=== PATIENT | female | born 1960 | race Caucasian/White ===

== ENCOUNTER 2018-07-30 14:07 | Emergency (ER) | END 2018-07-30 15:42 | disposition home or self-care (01) ==

== ENCOUNTER 2019-02-17 09:31 | Emergency (ER) | payer OTHER ==
[~2019-02-17] VITALS: Wt 70.0 kg
[~2019-02-17 09:31] MED LIST: ASPI-831 PO; ATOR10TA65 PO; CLIN300C10 PO; HYDR-3498 PO; IBUP-1542 PO; LOSA1TAB22 PO; OMEP20CA16 PO
[2019-02-17 09:34] VITALS: BP 156/81; PULSE 78; RESP 20
[2019-02-17] MEDS ORDERED: BENZONATATE 100 MG CAP PO ONE (10:30)
[2019-02-17] MEDS ORDERED: BENZ-6 PO (10:58)
[2019-02-17] MEDS ORDERED: AMOX1TAB10 PO (10:58)
--- NOTE | 2019-02-17 11:17 | ERD ---
ER Documentation Chief Complaint Chief Complaint cough and congestion with intermittent fevers for the past few days. HPI This is a 58-year-old female with a history of hypertension diabetes mellitus who presents ED with complaints of runny nose and nasal congestion for the past 20 days. Patient admits to sinus pain and pressure that started 4 days ago. Admits to subjective fevers but has not taken temperature. Also admits to cough with sputum production. Denies chest pain, shortness breath, trouble breathing, sore throat, ear pain, abdominal pain, nausea, vomiting, diarrhea, constipation or other symptoms. No known drug allergies. ROS All systems reviewed and are negative except as per history of present illness. Medications Home Meds Active Scripts Benzonatate* (Tessalon Perle*) 100 Mg Capsule, 100 MG PO Q8H PRN for COUGH, #18 CAP Prov:PATEL BERNSTEIN PA-C 02/17/19 Amoxicillin/Potassium Clav (Amox-Clav 875-125 mg Tablet) 875-125 mg Tab, 1 TAB PO BID for 10 Days, #20 TAB Prov:PATEL BERNSTEIN PA-C 02/17/19 Ibuprofen* (Motrin*) 600 Mg Tab, 600 MG PO Q6H PRN for PAIN AND OR ELEVATED TEMP, #30 TAB Prov:ABHINAV VELEZ PA-C 07/30/18 Clindamycin Hcl* (Clindamycin Hcl*) 300 Mg Capsule, 300 MG PO TID for 10 Days, CAP Prov:ROSALBA,ROSMERY DO 12/29/15 Hydrocodone Bit-Acetaminophen* ([place]*) 5-325 Mg Tab, 1 TAB PO Q6 PRN for PAIN, #7 TAB Prov:ROSALBA,ROSMERY DO 12/29/15 Hydrocodone Bit-Acetaminophen* ([place]*) 5-325 Mg Tab, 1 TAB PO Q4H PRN for PAIN, #30 TAB Prov:YARI GOODRICH 11/05/15 Reported Medications Aspirin (Aspirin) 81 Mg Chew, 81 MG PO DAILY, TAB.CHEW 03/16/15 Atorvastatin (Atorvastatin) 10 Mg Tablet, 10 MG PO, TAB 03/16/15 Losartan-Hydrochlorothiazide (Losartan-HCTZ) 50-12.5 Mg Tab, 1 TAB PO DAILY, TAB 03/16/15 Omeprazole* (Omeprazole*) 20 Mg Capsule.dr, 20 MG PO DAILY, CAP 03/16/15 Allergies Allergies: Coded Allergies: No Known Allergy (Unverified , 10/30/15) PMhx/Soc History of Surgery: Yes (Angiogram 2013) Anesthesia Reaction: No Hx Neurological Disorder: No Hx Respiratory Disorders: No Hx Cardiac Disorders: Yes (HTN, High Cholesterol) Hx Psychiatric Problems: No Hx Miscellaneous Medical Probl: No (dm) Hx Alcohol Use: No Hx Substance Use: No Hx Tobacco Use: No Smoking Status: Never smoker FmHx Family History: No diabetes Physical Exam Vitals Vital Signs Date Temp Pulse Resp B/P (MAP) Pulse Ox O2 O2 Flow FiO2 Time Delivery Rate 02/17/19 98.0 78 20 156/81 98 09:34 (106) Physical Exam Physical Exam Vitals signs: Reviewed by me. General: Well developed, well nourished, in no acute distress. Patient is awake and alert. Head: Normocephalic, atraumatic. Eyes: Normal conjunctiva, Pupils PERRLA, EOM intact grossly ENT: Pharynx is clear, Moist mucous membranes, external ears, nose and mouth normal, there is tenderness to percussion of the bilateral maxillary sinuses, left greater than right, no peritonsillar adenopathy, exudate or erythema, no kissing tonsils, no uvula deviation Neck: Supple, no masses, lymphadenopathy or JVD Respiratory: Clear to auscultation bilaterally with no wheezing, rhonchi, rales, no distress Cardiovascular: RRR, no murmurs, rubs, or gallops Neurologic: Alert and oriented, moving all extremities, normal speech, no focal weakness, no cerebellar signs. Normal mentation Skin: warm and dry, No rash Psych: Normal mood , Normal nasal mucosa with clear rhinorrhea, Results 24 hrs Current Medications Medications Dose Sig/Mica Start Time Status Last (Trade) Ordered Route PRN Stop Time Admin Dose Reason Admin Benzonatate 100 mg ONCE ONCE 02/17/19 DC 02/17/19 (Tessalon) PO 10:30 10:51 02/17/19 10:31 Procedures/MDM EKG, MONITORS, & DIAGNOSTIC IMAGING: [place] [address] Radiology Main Line: [phone] DIAGNOSTIC IMAGING REPORT Patient: TRACEY DUMONT : 1960 Age: 58 Sex: F [id number] [id number] DOS: 02/17/19 1018 Ordering MD: PATEL BERNSTEIN PA-C Location: [facility] Room/Bed: PROCEDURE: XR Chest. CLINICAL INDICATION: Cough TECHNIQUE: Frontal chest x-ray was obtained. COMPARISON: Chest x-ray October 30, 2015 FINDINGS: The heart is not enlarged. Mediastinum is not widened. No hilar masses seen. Lungs are clear of any infiltrates. There are linear markings present at the lung bases suggestive of fibrosis or plate-like atelectasis. There is no effusion or pneumothorax. The osseous structures appear normal. IMPRESSION: No pneumonia or failure. Bibasilar scarring versus plate-like atelectasis. .Didier Miller MD, MD Date Time Electronically viewed and signed by .Didier Miller MD, MD on 02/17/2019 10:49 .A/ CC: PATEL BERNSTEIN PA-C [phone] ER COURSE: The patient was given Tessalon Perles The medication was well tolerated and the patient reports improvement in symptoms. The patient was stable throughout ED course. I kept the patient and/or family informed of laboratory and diagnostic imaging results throughout the emergency room course. The patient was promptly evaluated and a treatment plan was devised based on H&P and other data. This plan was discussed with the patient who agreed and had no further questions or concerns prior to discharge. MEDICAL DECISION MAKIN-year-old female presents ED with complaints of URI-like symptoms for the past 20 days. Patient developed sinus pain and pressure 4 days ago. Given history and physical this is likely sinusitis. No evidence of ENT emergency including the not limited to retro pharyngeal abscess, peritonsillar abscess, Ludwigs, epiglottitis, mastoiditis. Chest x-ray is unremarkable. No evidence of pneumon ia, pleural effusion, pneumothorax, tension pneumothorax, p pulmonary embolism, . Patient's vitals are stable she can be managed outpatient with close follow- up. Advised patient follow up with primary care in 48 hours. Return to ED with any worsening symptoms DISPOSITION PLAN: We discussed follow up with the patient's primary care doctor within 24 to 48 hours. Patient counseled regarding my diagnostic impression and care plan. Prior to discharge all questions answered. Pt agrees with treatment plan and understands strict return precautions. Precautionary instructions provided including instructions to return to the ER if not improving or for any worsening or changing symptoms or concerns. SPECIALIST FOLLOW UP RECOMMENDED: None Patient has been advised to follow up with primary care in 1-2 days. Disclaimer: Inadvertent spelling and grammatical errors are likely due to EHR/dictation software use and do not reflect on the overall quality of patient care. Also, please note that the electronic time recorded on this note does not necessarily reflect the actual time of the patient encounter. Blood Pressure Assessment: Patient's blood pressure was elevated (>120/80) but appears stable without evidence of hypertension emergency or urgency. The patient was counseled about the risks of hypertension and urged to pursue outpatient monitoring and therapy within a week with their primary care physician. Departure Diagnosis: Primary Impression: Sinusitis Sinusitis location: unspecified location Chronicity: acute Recurrence: non-recurrent Qualified Codes: J01.90 - Acute sinusitis, unspecified Additional Impression: Cough Condition: Stable Patient Instructions: Preventing Common Respiratory Infections, Sinusitis, Abx Tx Referrals: [facility] Usted se guardado hecho un examen mdico de control que le indica que no est en yvon condicin que requiera tratamiento urgente en el Departamento de Emergencia. Un estudio ms profundo y el tratamiento de monroy condicin pueden esperar sin ningn riesgo hasta que usted sea atendida/o en el consultorio de monroy mdico o yvon clnica. Es responsabilidad suya arreglar yvon duke para el seguimiento del andry. MANEJO DE CONDICIONES NO URGENTES EN EL FUTURO 1) Si usted tiene un mdico de atencin primaria: Usted debera llamar a monroy mdico de atencin primaria antes de venir al departamento de emergencia. Despus de las horas de consultorio, monroy doctor o monroy asociado/a est disponible por telfono. El mdico o enfermero de steve en el servicio telefnico puede asesorarle por ashleigh medio para atender el problema, o andry contrario se puede programar yvon duke. 2) Si usted no tiene un mdico de atencin primaria: Llame al mdico o clnica de referencia que aparece abajo norberto las horas de consultorio para hacer yvon duke para que le vean. CLINICAS: [facility] [phone] [facility] [phone] [facility] [phone] [facility] [phone] [place] [id number] [phone] [facility] [phone] Additional Instructions: Patient advised to return to the ED immediately for new or worsening symptoms. Patient advised to follow up with primary care provider in the next 24-48 hours. Patient verbalized understanding and agrees with treatment plan and course of action. If patient has no primary care they may follow up with one of the community clinics listed on the following page or one of the options listed below [facility] + [facility] [address] [place] [id number] or [facility] [address] [place] [address] or [facility] [address] [place] [address] PATEL BERNSTEIN PA-C Feb 17, 2019 11:17
== END 2019-02-17 11:42 | disposition home or self-care (01) ==
LOC: FTE 09:31
DX: J01.90 Acute sinusitis, unspecified (principal); I10 Essential (primary) hypertension; E11.9 Type 2 diabetes mellitus without complications; Z79.82 Long term (current) use of aspirin
CPT/HCPCS: 71045; Z7502; Z7610

== ENCOUNTER 2019-03-29 06:59 | Day surgery (SDC) | payer OTHER ==
[~2019-03-29] VITALS: Ht 157.5 cm; Wt 71.3 kg
[~2019-03-29 06:59] MED LIST changes: +AMOX1TAB10 PO; +BENZ-6 PO
[2019-03-29] MEDS ORDERED: ASPIRIN (08:21)
[2019-03-29] MEDS ORDERED: METFORMIN (08:21)
[2019-03-29] MEDS ORDERED: [UNRECOGNIZED DRUG - OTHER] (08:21)
[2019-03-29] MEDS ORDERED: METOPROLOL (08:21)
[2019-03-29] MEDS ORDERED: ATORVASTATIN (08:21)
[2019-03-29 08:22] VITALS: Ht 157.5 cm; Wt 71.3 kg
[2019-03-29 08:48] VITALS: BP 137/71; PULSE 69; RESP 20
[2019-03-29] MEDS ORDERED: FENTAnyl 50 MCG/ML VIAL ONE (09:47)
[2019-03-29] MEDS ORDERED: MIDAZOLAM 1 MG/ML 2 ML INJ ONE ×2 (09:48)
[2019-03-29 10:10] VITALS: BP 111/65; RESP 20
== END 2019-03-29 11:04 | disposition home or self-care (01) ==
LOC: GIL 06:59
PROVIDERS: ATTEND Internal Medicine Gastroenterology
DX: K64.8 Other hemorrhoids (principal); K57.30 Diverticulosis of large intestine without perforation or abscess without bleeding; R10.10 Upper abdominal pain, unspecified; I10 Essential (primary) hypertension; E11.9 Type 2 diabetes mellitus without complications
CPT/HCPCS: 43239; 45378; 82962; 88305; 88312; J2250; J3010; Z7610

== ENCOUNTER 2019-05-15 06:57 | Observation (INO) | payer OTHER ==
[~2019-05-15] VITALS: Ht 162.6 cm; Wt 69.1 kg
[~2019-05-15 06:57] MED LIST changes: +ASPIRIN; +ATORVASTATIN; +METFORMIN; +METOPROLOL; +[UNRECOGNIZED DRUG - OTHER]
[2019-05-15 06:59] VITALS: Ht 162.6 cm; Wt 69.1 kg
[2019-05-15] MEDS ORDERED: ASPIRIN 325 MG TAB PO STA (07:19)
[2019-05-15] MEDS ORDERED: MAGNESIUM SULFATE 2 GM/50 ML 50 ML IVPB STA (07:19)
[2019-05-15] MEDS ORDERED: SOD CHLORIDE 0.9% 1,000 ML IV STA (07:19)
--- NOTE | 2019-05-15 07:35 | ERD ---
ER Documentation Chief Complaint Chief Complaint shortness of breath and chest pressure since 3 am today; dizziness now HPI During the patient's encounter translation services were utilized Language: Maldivian Source: In person 59-year-old female with remote history of non-STEMI without stents who presents to the emergency room complaining of chest pressure and new onset A. fib with RVR. Patient states that she did not feel well yesterday. This morning she woke up with pressure over the anterior aspect of her chest. She felt her heart racing. Upon arrival she is in A. fib with RVR with low blood pressure. She denies any fevers, chills, pleuritic pain, no calf swelling. No recent travel sick contacts immobilization or surgical intervention. Patient states that the chest pain is since gone. She did not describe any pleuritic discomfort or significant shortness of breath. Symptoms are moderate ROS All systems reviewed and are negative except as per history of present illness. Medications Home Meds Active Scripts Benzonatate* (Tessalon Perle*) 100 Mg Capsule, 100 MG PO Q8H PRN for COUGH, #18 CAP Prov:PATEL BERNSTEIN PA-C 02/17/19 Amoxicillin/Potassium Clav (Amox-Clav 875-125 mg Tablet) 875-125 mg Tab, 1 TAB PO BID for 10 Days, #20 TAB Prov:PATEL BERNSTEIN PA-C 02/17/19 Ibuprofen* (Motrin*) 600 Mg Tab, 600 MG PO Q6H PRN for PAIN AND OR ELEVATED TEMP, #30 TAB Prov:ABHINAV VELEZ PA-C 07/30/18 Clindamycin Hcl* (Clindamycin Hcl*) 300 Mg Capsule, 300 MG PO TID for 10 Days, CAP Prov:ROSMERY NAVARRETE DO 12/29/15 Hydrocodone Bit-Acetaminophen* (Singer*) 5-325 Mg Tab, 1 TAB PO Q6 PRN for PAIN, #7 TAB Prov:ROSALBAKASHROSMERY DO 12/29/15 Hydrocodone Bit-Acetaminophen* (Singer*) 5-325 Mg Tab, 1 TAB PO Q4H PRN for PAIN, #30 TAB Prov:YARI GOODRICH 11/05/15 Reported Medications [Metoprolol] No Conflict Check 03/29/19 [Pantroprazole] No Conflict Check 03/29/19 [Atorvastatin] No Conflict Check 03/29/19 [Aspirin] No Conflict Check 03/29/19 [Metformin] No Conflict Check 03/29/19 Aspirin (Aspirin) 81 Mg Chew, 81 MG PO DAILY, TAB.CHEW 03/16/15 Atorvastatin (Atorvastatin) 10 Mg Tablet, 10 MG PO, TAB 03/16/15 Losartan-Hydrochlorothiazide (Losartan-HCTZ) 50-12.5 Mg Tab, 1 TAB PO DAILY, TAB 03/16/15 Omeprazole* (Omeprazole*) 20 Mg Capsule.dr, 20 MG PO DAILY, CAP 03/16/15 Allergies Allergies: Coded Allergies: No Known Allergy (Unverified , 10/30/15) PMhx/Soc History of Surgery: No Anesthesia Reaction: No Hx Neurological Disorder: No Hx Respiratory Disorders: No Hx Cardiac Disorders: Yes (HTN) Hx Psychiatric Problems: No Hx Miscellaneous Medical Probl: No Hx Alcohol Use: No Hx Substance Use: No Hx Tobacco Use: No FmHx Family History: No diabetes, No coronary disease Physical Exam Vitals Vital Signs Date Temp Pulse Resp B/P (MAP) Pulse Ox O2 O2 Flow FiO2 Time Delivery Rate 05/15/19 97.8 137 18 85/67 (73) 100 06:59 Physical Exam General: Well developed, well nourished, no acute distress Head: Normocephalic, atraumatic. Eyes: Pupils equally reactive, EOM intact ENT: Moist mucous membranes Neck: Supple, no lymphadenopathy Respiratory: Lungs clear bilaterally, no distress Cardiovascular: Irregularly irregular, then regular rate and rhythm, no murmurs, rubs, or gallops Abdominal: Soft, non-tender, non-distended, no peritoneal signs : Deferred MSK: No edema, no unilateral swelling, 5/5 strength Neurologic: Alert and oriented, moving all extremities, normal speech, no focal weakness, no cerebellar signs Skin: No rash Psych: Normal mood Result Diagram: 05/15/19 0735 05/15/19 0735 Results 24 hrs Laboratory Tests Test 05/15/19 07:35 White Blood Count 5.2 10^3/ul Red Blood Count 4.59 10^6/ul Hemoglobin 15.2 g/dl Hematocrit 43.8 % Mean Corpuscular Volume 95.4 fl Mean Corpuscular Hemoglobin 33.1 pg Mean Corpuscular Hemoglobin Concent 34.7 g/dl Red Cell Distribution Width 12.6 % Platelet Count 199 10^3/UL Mean Platelet Volume 8.5 fl Immature Granulocytes % 0.400 % Neutrophils % 54.3 % Lymphocytes % 36.5 % Monocytes % 7.6 % Eosinophils % 0.6 % Basophils % 0.6 % Nucleated Red Blood Cells % 0.0 /100WBC Immature Granulocytes # 0.020 10^3/ul Neutrophils # 2.8 10^3/ul Lymphocytes # 1.9 10^3/ul Monocytes # 0.4 10^3/ul Eosinophils # 0.0 10^3/ul Basophils # 0.0 10^3/ul Nucleated Red Blood Cells # 0.0 10^3/ul Prothrombin Time 12.1 Sec Prothrombin Time Ratio 0.9 INR International Normalized Ratio 0.89 Activated Partial Thromboplast Time 28.6 Sec Sodium Level 140 mmol/L Potassium Level 4.4 mmol/L Chloride Level 104 mmol/L Carbon Dioxide Level 24 mmol/L Anion Gap 12 Blood Urea Nitrogen 17 mg/dl Creatinine 0.68 mg/dl Est Glomerular Filtrat Rate mL/min > 60 mL/min Glucose Level 176 mg/dl Calcium Level 9.2 mg/dl Magnesium Level 2.0 mg/dl Troponin I < 0.012 ng/ml B-Type Natriuretic Peptide 519 PG/ML Thyroid Stimulating Hormone (TSH) Pending Free Thyroxine Index 2.41 ug/ml Thyroxine (T4) 6.8 ug/dl Triiodothyronine (T3) Uptake 35.5 % Current Medications Medications Dose Sig/Mica Start Time Status Last (Trade) Ordered Route PRN Stop Time Admin Dose Reason Admin Sodium 1,000 ml @ Q1H STAT 05/15/19 DC 05/15/19 Chloride 1,000 mls/hr IV 07:19 07:57 05/15/19 08:18 Aspirin 325 mg ONCE STAT 05/15/19 DC 05/15/19 (Aspirin) PO 07: 07:57 05/15/19 07:22 Magnesium 50 ml @ ONCE STAT 05/15/19 DC 05/15/19 Sulfate 600 mls/hr IVPB 07:19 07:57 05/15/19 07:23 Procedures/MDM EKG, MONITORS, & DIAGNOSTIC IMAGING: EKG: I reviewed and interpreted a 12-lead EKG. Rhythm: A. fib with RVR ST Changes: No contiguous ST segment elevations T waves: No contiguous T wave inversions Impression: A. fib with RVR Repeat EKG: EKG: I reviewed and interpreted a 12-lead EKG. Rhythm: Normal sinus rhythm ST Changes: No contiguous ST segment elevations T waves: No contiguous T wave inversions Impression: No evidence of acute cardiac ischemia Chest x-ray: I reviewed and interpreted a 1 view of the chest Mediastinum: No enlargement Cardiac silhouette: No cardiomegaly Airspace: Clear lung adams bilaterally without evidence of pneumothorax Bones: No evidence of fracture PROCEDURES: None LAB INTERPRETATION: * Negative troponin MEDICAL DECISION MAKING: The patient's history, physical exam and clinical presentation is concerning for possible cardiogenic etiology and acute coronary syndrome and new onset paroxysmal atrial fibrillation. The patient had spontaneous conversion during my conversation with her. The patient likely has paroxysmal atrial fibrillation that is new diagnosis. No signs or symptoms concerning for pulmonary process such as pulmonary embolism. No evidence of infectious process. Based on the patient's clinical exam and history and risk factors, I have a much lower clinical concern for pulmonary embolism, acute aortic dissection, pneumothorax, pneumonia, cardiac tamponade HEART Score: Greater than 3 MACE Rate: 16.6% Shared Decision Making: We had a conversation regarding risk stratification, MACE rate, and the risks, benefits, alternatives of disposition planning o ptions. Disposition planning: Admission ER COURSE: * Chest pain-free. Aspirin given. Magnesium dose provided. * Laboratory testing reassuring. CONSULTATION: None DISPOSITION PLAN: Telemetry admission for management of chest pain to rule out acute coronary syndrome, serial enzymes, risk stratification and consideration of provocative testing CONSULTATION: Accepting care team and consultations: I discussed the current laboratory data, diagnostic imaging and emergency care provided. Admitting team: Dr. Bustamante Admitting team indication: Insurance directed Departure Diagnosis: Primary Impression: Chest pain Chest pain type: unspecified Qualified Codes: R07.9 - Chest pain, unspecified Additional Impressions: New onset atrial fibrillation Paroxysmal atrial fibrillation with RVR Condition: Stable MUSHTAQ CHIU MD May 15, 2019 07:35
[2019-05-15] MEDS ORDERED: ONDANSETRON 4 MG INJ IV PRN ×2 (09:00→10:00)
[2019-05-15] MEDS ORDERED: ACETAMINOPHEN 325 MG TAB PO PRN (09:00)
[2019-05-15] MEDS ORDERED: ASPI81TA52 PO (09:03)
[2019-05-15] MEDS ORDERED: METF500T3 PO (09:03)
[2019-05-15] MEDS ORDERED: ATOR10TA65 PO (09:03)
[2019-05-15] MEDS ORDERED: LOSA50TA14 PO (09:03)
[2019-05-15] MEDS ORDERED: PANT40TA3 PO (09:04)
[2019-05-15] MEDS ORDERED: NACL 0.9% 3 ML SYG IV SCH (10:00)
--- NOTE | 2019-05-15 10:17 | HP ---
Date/Time of Note Date/Time of Note DATE: 05/15/19 TIME: 10:04 Assessment/Plan VTE Prophylaxis SCD applied (from Nsg): Yes Pharmacological prophylaxis: NA/contraindicated Pharm contraindication: low risk/ambulating Lines/Catheters IV Catheter Type (from Nrsg): Saline Lock Assessment/Plan Assessment/Plan 59 yo woman history of NSTEMI and NIDDM presents in symptomatic paroxysmal A fib. #Atrial fibrillation, paroxysmal. - Denies any palpitations or chest pain since 2013, so this is probably new onset. - Currently symptoms resolved. - Will consult cardiology to see if she needs to be D/Jack on something for rate control. - Will benefit from anticoagulation. Likely eliquis. - TTE - Admit to tele - Dr Morse consulted. #NIDDM - Continue home metformin - Check HgbA1C #HTN - Cont JOHANNA-HCTZ #Dyslipidemia - Cont statin DVT: Likely start eliqius before discharge GI: H2 alethea Result Diagram: 05/15/19 0735 05/15/19 0735 HPI/ROS Admit Date/Time Admit Date/Time 15 May 2019 Hx of Present Illness Ms. Syed is a Irish-speaking 59 yo woman with history of NSTEMI, NIDDM who presents with chest martinez and palpitations. She was in her usual state of health until this morning at 3 am when she was woken from sleep with pressure-like chest discomfort. It was worse with standing, better with lying down. She didn't take anything for the discomfort and waited for symptoms to resolve. Around 6 am she developed dyspnea at rest and dizziness, so she presented to the ED. Otherwise she reports compliance with all medications listed. 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 Last time she had this chest pain was after an NSTEMI in 2013 which was treated medically with no cardiac cath. On arrival to the ED she was in A fib tachycardic to 137; hypotensive to 85/67, afebrile, satting 100% on room air. Labs unremarkable including a negative troponin. She got aspirin and a NS bolus and spontaneously converted back to normal sinus. ROS She denies fever, chills, weight loss, night sweats, headache, vision changes, nausea, vomiting, sore throat, dysphagia, cough, abdominal pain, diarrhea, constipation, leg swelling. She does report occasional dysuria which comes and goes. PMH/Family/Social Past Medical History NSTEMI in 2014 treated medically, no cath. Non-insulin dependent diabetes Hypertension Medications Current Medications Ondansetron HCl (Zofran Inj) 4 mg ER BRIDGE PRN IV NAUSEA/VOMITING; Start at 09:00; Stop 05/16/19 at 08:59 Acetaminophen (Tylenol Tab) 650 mg ER BRIDGE PRN PO .MILD PAIN 1-3 OR TEMP; Start 05/15/19 at 09:00; Stop 05/16/19 at 08:59 IV Flush (NS 3 ml) 3 ml PER PROTOCOL IV ; Start 05/15/19 at 10:00; Status UNV Ondansetron HCl (Zofran Inj) 4 mg Q6H PRN IV NAUSEA/VOMITING; Start 05/15/19 at 10:00; Status UNV Famotidine (Pepcid) 20 mg Q12 PO ; Start 05/15/19 at 21:00; Status UNV Coded Allergies: No Known Allergy (Unverified , 05/15/19) Past Surgical History Tuboligation at age 29 Past Surgical Hx: other Family History Significant Family History: no pertinent family hx Social History Alcohol Use: none Smoking Status: Never smoker Drug Use: none Exam/Review of Systems Vital Signs Vitals Vital Signs Date Temp Pulse Resp B/P (MAP) Pulse Ox O2 O2 Flow FiO2 Time Delivery Rate 05/15/19 97.8 137 18 85/67 (73) 100 06:59 Exam Exam Gen: Well appearing woman supine in bed, no distress. Eyes: PERRL, no icterus HEENT: Moist mucous membranes, clear oropharynx Neck: No lymphadenopathy, supple, no JVD Card: Regular rate and rhythm, no murmurs Pulm: Clear to auscultation bilaterally, no wheezes. Abd: Soft, nontender throughout, nondistended. Normoactive bowel sounds. Ext: 1+ nonpitting bilateral LE edema, peripheral pulses strong. Skin: bilateral LE varicose veins. LUCERO HOPE MD May 15, 2019 10:14
[2019-05-15] MEDS ORDERED: GLUCAGON 1 MG INJ IM PRN (10:30)
[2019-05-15] MEDS ORDERED: DEXTROSE 50% 50 ML SYRINGE IV PRN ×2 (10:30)
[2019-05-15] MEDS ORDERED: GLUCOSE GEL 15 GRAM TUBE BUCCAL PRN (10:30)
[2019-05-15] MEDS ORDERED: GLUCOSE GEL 15 GRAM TUBE PO PRN ×2 (10:30)
[2019-05-15] MEDS: ACCU-CHEK XX SCH ×2 (12:30→21:00)
[2019-05-15] MEDS ORDERED: METOPROLOL 5 MG INJ IV PRN (15:30)
--- NOTE | 2019-05-15 16:23 | RADRPT ---
Echocardiogram Report Patient Name: TRACEY DUMONTPatient ID: [id number] : 1960 (59y 2m)Study Date: 05/15/2019 10:31:37 AM Gender: FAccession #: [id number] Tech: Seng Landry AVA Location: [facility] Ref.Physician: LUCERO HOPE Height(Cm): BSA: Weight(Kg): Quality: AdequateOrder Physician: LUCERO HOPE Account #: Procedures: Echocardiographic Report: Transthoracic echocardiogram with complete 2D, M-Mode, and doppler examination. Indications: New Atrial Fibrillation. Measurements: 2D/M Mode Doppler Measurement Value Normal Range Measurement Value Normal Range LVIDd 2D 3.8 [ 3.8 - 5.2 ] cm AV Peak Oscar 1.1 [ 100.0 - 170.0 ] cm/sec LVIDs 2D 1.5 [ 2.2 - 3.5 ] cm AV Peak PG 5.0 [ 2.0 - 9.0 ] mmHg LVPWd 2D 1.1 [ 0.6 - 0.9 ] cm LVOT Peak Oscar 0.8 [ 70.0 - 110.0 ] cm/sec IVSd 2D 1.1 [ 0.6 - 0.9 ] cm LVOT Peak PG 3.0 [ 2.0 - 6.0 ] mmHg IVS/LVPW 2D 1.0 ratio MV E Peak Oscar 0.5 [ 60.0 - 130.0 ] cm/sec AoR Diam 2D 3.2 [ 2.3 - 3.1 ] cm MV A Peak Oscar 0.7 [ 100.0 - 120.0 ] cm/sec LA/Ao 2D 1 ratio MV E/A 0.8 [ 0.8 - 1.5 ] ratio LA Dimen 2D 3.3 [ 2.7 - 3.8 ] cm MV Decel Time 113 [ 104 - 258 ] msec Lat E` Oscar 0.1 [ 10.0 - 15.0 ] cm/sec Med E` Oscar 0.1 cm/sec MV E/A 0.8 [ 0.8 - 1.5 ] ratio TR Peak Oscar 2.7 [ 100.0 - 280.0 ] cm/sec TR Peak PG 29.0 mmHg RVSP 37.0 [ 10.0 - 36.0 ] mmHg RA Pressure 8.0 mmHg Findings: Left Ventricle: Normal left ventricular systolic function. Normal left ventricular cavity size. Mild concentric left ventricular hypertrophy. Ejection fraction is visually estimated at 60-65 %. Tissue Doppler/Mitral Doppler indices are consistent with impaired relaxation (Stage I diastolic dysfunction). Right Ventricle: Normal right ventricular systolic function. Mild enlargement of right ventricle. Left Atrium: The left atrium is normal in size. Right Atrium: There is mild enlargement of right atrium. Mitral Valve: Normal appearance and function of the mitral valve with trace physiologic regurgitation. Aortic Valve: Normal appearance of the aortic valve. No significant aortic stenosis or insufficiency. Tricuspid Valve: Normal appearance of the tricuspid valve. The estimated Peak RVSP is 37 mmHg. There is mild tricuspid regurgitation. Pulmonic Valve: Normal pulmonic valve appearance. Pericardium: Normal pericardium with no significant pericardial effusion. Aorta: Normal aortic root. IVC: Normal size and normal respiratory collapse consistent with normal right atrial pressure. Dilated IVC with respiratory collapse consistent with elevated right atrial pressure. Conclusions: Normal left ventricular systolic function. Normal left ventricular cavity size. Mild concentric left ventricular hypertrophy. Ejection fraction is visually estimated at 60-65 %. Tissue Doppler/Mitral Doppler indices are consistent with impaired relaxation (Stage I diastolic dysfunction). Normal right ventricular systolic function. Mild enlargement of right ventricle. Normal appearance and function of the mitral valve with trace physiologic regurgitation. Normal appearance of the tricuspid valve. The estimated Peak RVSP is 37 mmHg. There is mild tricuspid regurgitation. Electronically Signed By: Lucero Morse 2019-05-15 16:23:02 PDT
[2019-05-15 20:30] VITALS: BP 123/68; PULSE 66; RESP 18
[2019-05-15 20:40] VITALS: PULSE 70
[2019-05-15] MEDS ORDERED: ATORVASTATIN 10 MG TAB PO SCH (21:00)
[2019-05-15] MEDS: FAMOTIDINE 20 MG TAB PO SCH (21:15)
[2019-05-15] MEDS: APIXABAN 5 MG TABLET PO SCH (21:15)
[2019-05-15] MEDS: METOPROLOL 25 MG TAB PO SCH (21:16)
[2019-05-16] VITALS (9 sets, daily range): BP systolic 101–121; BP diastolic 55–67; PULSE 61–68; RESP 18–20
--- NOTE | 2019-05-16 07:16 | CONS ---
DATE OF ADMISSION: 05/15/2019 DATE OF CONSULTATION: 05/15/2019 TYPE OF CONSULTATION: Cardiology. REASON FOR CONSULTATION: Chest pain, palpitations. Paroxysmal atrial fibrillation. REQUESTING PHYSICIAN: Lucero Hope MD, from the hospitalist service. HISTORY OF PRESENT ILLNESS: Ms. Syed is a 59-year-old female with a history of prior non-ST myoc ardial infarction in 2013 with subsequent left heart catheterization revealing no significant obstruc tive coronary artery disease, gastritis, hypertension, dyslipidemia, diabetes mellitus who states francia t she woke this morning with complaints of substernal chest pain, describes a pressure-like sensation with associated palpitations which she has not had since 2014 as far as chest pain. The patient den ied any prior history of palpitations similar to this. Upon arrival in the ER, temperature 97.8, blo od pressure 85/67, pulse 137/18, satting 100%. LABORATORY DATA: The patient's labs showed white blood cell count 5.2, hematocrit 50.2, platelet cou nt 199. Sodium 140, potassium 4.4, creatinine 0.6, BUN 17. Troponin negative. BNP of 519. INR 0.9 . The patient underwent a chest x-ray revealing calcified thoracic aortic arch. The patient's electroc ardiogram revealed atrial fibrillation, rate 134 with incomplete right bundle branch block, secondary repolarization abnormalities. The patient in the Emergency Department, was treated with aspirin 325 mg daily, mag sulfate, IV hydration and had what appears to be a spontaneous conversion. I do not s ee any medications given. Sinus rhythm, where she remains at this time with resolution of symptoms. The patient now admitted to floor for further evaluation and treatment. PAST MEDICAL HISTORY: As above in HPI. MEDICATIONS CURRENTLY IN HOSPITAL: 1. Aspirin 81 mg daily. 2. Losartan 50 mg daily. 3. Metformin 500 mg a day. 4. Pepcid 20 q.12. 5. Lipitor 10 mg at bedtime. 6. Zofran p.r.n. 7. Tylenol p.r.n. ALLERGIES: No known drug allergies. SOCIAL HISTORY: No current tobacco, ETOH or illicit drug use. FAMILY HISTORY: No sudden cardiac or early CAD. REVIEW OF SYSTEMS: As above in HPI. CONSTITUTIONAL: No fevers, chills. PULMONARY: No current shortness of breath. CARDIOVASCULAR: Paroxysmal atrial fibrillation with rapid ventricular response, now in sinus rhythm. GASTROINTESTINAL: No vomiting. GENITOURINARY: No hematuria. MUSCULOSKELETAL: Degenerative joint disease. PSYCHIATRIC: The patient has depression. NEUROLOGIC: No documented CVA. ENDOCRINE: Diabetes mellitus. PHYSICAL EXAMINATION: VITAL SIGNS: Temperature 98, blood pressure 120/64, pulse 78, respiratory rate 18, satting 100%. GENERAL: Patient is alert, awake, no acute distress. NECK: JVP approximately 8 to 9 cm of water. CHEST: Fair air movement throughout. HEART: Regular rate and rhythm. Normal S1, S2, I/ systolic murmur, nondisplaced PMI. ABDOMEN: Positive bowel sounds, soft. EXTREMITIES: No edema, 1+ pulses bilateral posterior tibial. LABORATORY DATA: As above in HPI. No further labs for my review at this time. IMAGING STUDIES: As in HPI. No further imaging studies for my review at this time. ECG: As above in HPI. No further electrocardiograms for my review at this time. IMPRESSION: 1. Paroxysmal atrial fibrillation with rapid ventricular response, now converted to sinus rhythm spo ntaneously. 2. History of hypertension. 3. Dyslipidemia. 4. Diabetes mellitus. 5. Chest pain, likely secondary to #1. Assess for acute coronary syndrome without electrocardiogram with incomplete right bundle block, rule out structural heart disease. RECOMMENDATIONS: 1. At this time would admit patient to telemetry monitoring to follow rhythm and rates real closely. 2. We would continue the patient's losartan, but decrease dose to allow patient to tolerate reasonab le dose of a beta alethea to suppress further bouts of atrial fibrillation in an attempt to improve h eart rate control. 3. Continue the patient's statin and aspirin at this time and the patient should likely be considere d for systemic regulation for prevention of thrombolic complications in the setting of paroxysm al atrial fibrillation, elevated CHADS-VASc score, therefore will likely initiate patient on Eliquis and then I will likely discontinue aspirin at that time. 4. Check a 2D echo for this patient's ejection fraction, wall motion and abnormalities, fastin g lipid panel for general risk stratification and patient's statin therapy as necessary. 5. Check TSH hyperthyroid is not contributing to any bouts of tachycardia. Thank you for allowing me to take part in the care of this patient. I will continue to follow along very closely with you as further recommendations will be made as the patient progresses through her [facility] clinical course. Dictated By: LUCERO BOSS/KIET Conf#: [id number] DID#: [id number] CC: LUCERO HOPE MD;*EndCC*
[2019-05-16] MEDS: ACCU-CHEK XX SCH ×3 (08:14→17:06)
[2019-05-16] MEDS: APIXABAN 5 MG TABLET PO SCH (08:51)
[2019-05-16] MEDS: METOPROLOL 25 MG TAB PO SCH (08:51)
[2019-05-16] MEDS: FAMOTIDINE 20 MG TAB PO SCH (08:51)
[2019-05-16] MEDS ORDERED: ASPIRIN (EC) 81 MG TAB PO SCH (09:00)
[2019-05-16] MEDS ORDERED: LOSARTAN 25 MG TAB PO SCH (09:00)
[2019-05-16] MEDS ORDERED: metFORMIN (XR) 500 MG TAB PO SCH (09:00)
[2019-05-16] MEDS ORDERED: LOSARTAN 50 MG TAB PO SCH (09:00)
[2019-05-16] MEDS ORDERED: METO-448 PO (12:03)
[2019-05-16] MEDS ORDERED: APIX5TAB PO (12:03)
[2019-05-16] MEDS ORDERED: LOSA25TA2 PO (12:03)
--- NOTE | 2019-05-16 12:06 | PDOCDIS ---
Discharge Instructions DIAGNOSIS Discharge Diagnosis Paroxysmal atrial fibrillation CONDITION [id number] Patient Condition: [id number] Good HOME CARE INSTRUCTIONS: [id number] Diet Instructions: [id number] Reduced Sodium ACTIVITY: [id number] Activity Restrictions: [id number] No Restrictions FOLLOW UP/APPOINTMENTS Follow-up Plan 1. Take all medications as prescribed. 2. Metoprolol is a new medicine which will regulate your heart rate and reduce the risk of arrhythmias. It will lower your blood pressure also. 3. I am changing the dose of your lisinopril from 50mg to 25mg so your blood pressure doesn't drop too low. 4. Apixaban (Eliquis) is a blood thinner which reduces your risk of stroke. While taking this medicine you will bleed and bruise more easily. 5. See your environmental engineer scientist in June as scheduled. 1. [place] todos los medicamentos segn lo prescrito. 2. El metoprolol es un nuevo medicamento que regular mon[place] ritmo cardaco y reducir el riesgo de arritmias. Tambin bajar monroy presin arterial. 3. Estoy cambiando la dosis de [place] lisinopril de 50 mg a 25 mg para que monroy presin arterial no baje demasiado. 4. Apixaban (Eliquis) es un anticoagulante que reduce el riesgo de accidente cerebrovascular. Mientras jacquie jacob medicamento sangrar y moretear ms fcnavdeep mente. 5. Consulte a monroy cardilogo en lolita segn lo programado. LUCERO HOPE MD May 16, 2019 12:06
--- NOTE | 2019-05-16 13:18 | CONS ---
Assessment/Plan Assessment/Plan Hospital Course (Demo Recall) IMPRESSION: 1. Paroxysmal atrial fibrillation with rapid ventricular response, now converted to sinus rhythm spontaneously. NL EF by echo this admit/ NL TSH 2. History of hypertension. 3. Dyslipidemia. 4. Diabetes mellitus. 5. Chest pain, likely secondary to #1. Assess for acute coronary syndrome without electrocardiogram with incomplete right bundle block, rule out structural heart disease.- neg trop x 3 Recc: -On tele -Continue BB -Continue eliquis -ok for d/c with outpatient f/u -Contineu statin/losartan -can d/c asa Consultation Date/Type/Reason Admit Date/Time May 15, 2019 at 08:47 Initial Consult Date 05/15/19 Type of Consult Cardiology Reason for Consultation PAF Requesting Provider: LUCERO HOPE MD Date/Time of Note DATE: 05/16/19 TIME: 13:14 Exam/Review of Systems Vital Signs Vitals Vital Signs Date Temp Pulse Resp B/P (MAP) Pulse Ox O2 O2 Flow FiO2 Time Delivery Rate 05/16/19 68 12:00 05/16/19 97.7 18 121/67 97 Nasal 11:12 (85) Cannula 05/16/19 2.0 04:10 Intake and Output 05/15/19 05/15/19 05/16/19 1515:00 23:00 07:00 IntakeIntake Total 240 ml 350 ml BalanceBalance 240 ml 350 ml Exam Exam Review of Systems: CONSTITUTIONAL: No fevers, chills. PULMONARY: No sob CARDIOVASCULAR: No chest pain/palpitations GASTROINTESTINAL: No nausea/vomiting. GENITOURINARY: No hematuria/dysuria. MUSCULOSKELETAL: No myagias/arthalgias. PSYCHIATRIC: The patient denies depression. NEUROLOGIC: No weakness Constitutional: alert Psych: no complaints Head: normocephalic ENMT: mucosa pink and moist Neck: supple, jvd (9 cm water) Respiratory: diminished breath sounds Cardiovascular: regular rate and rhythm Gastrointestinal: soft, non-tender Musculoskeletal: muscle tone Extremities: edema (none) Neurological: other (No focal deficits) Labs Result Diagram: 05/16/19 0551 05/16/19 0551 Results 24hrs Laboratory Tests Test 05/15/19 14:14 05/15/19 20:52 05/15/19 21:04 05/16/19 05:51 Creatine Kinase 39 35 Creatine Kinase 1.2 1.1 Index Creatinine Kinase MB 0.48 0.39 (Mass) Troponin I < 0.012 < 0.012 Bedside Glucose 104 White Blood Count 6.8 # Red Blood Count 4.19 L Hemoglobin 13.7 Hematocrit 40.7 Mean Corpuscular 97.1 Volume Mean Corpuscular 32.7 Hemoglobin Mean Corpuscular 33.7 Hemoglobin Concent Red Cell 13.1 Distribution Width Platelet Count 185 Mean Platelet Volume 8.7 Immature 0.300 Granulocytes % Neutrophils % 52.6 Lymphocytes % 33.5 Monocytes % 12.0 H Eosinophils % 1.0 Basophils % 0.6 Nucleated Red Blood 0.0 Cells % Immature 0.020 Granulocytes # Neutrophils # 3.6 Lymphocytes # 2.3 Monocytes # 0.8 Eosinophils # 0.1 Basophils # 0.0 Nucleated Red Blood 0.0 Cells # Sodium Level 146 H Potassium Level 4.6 Chloride Level 109 Carbon Dioxide Level 28 Anion Gap 9 Blood Urea Nitrogen 17 Creatinine 0.78 Est Glomerular > 60 Filtrat Rate mL/min Glucose Level 122 # Hemoglobin A1c 6.0 H Calcium Level 9.1 Magnesium Level 2.2 Total Bilirubin 0.6 Direct Bilirubin 0.00 Indirect Bilirubin 0.6 Aspartate Amino 23 Transf (AST/SGOT) Alanine 25 Aminotransferase (AL T/SGPT) Alkaline Phosphatase 70 Total Protein 6.4 Albumin 3.8 Globulin 2.60 Albumin/Globulin 1.46 Ratio Triglycerides Level 119 Cholesterol Level 94 L LDL Cholesterol, 45 Calculated HDL Cholesterol 25 L Cholesterol/HDL 3.7 Ratio Thyroid Stimulating 1.890 Hormone (TSH) Free Thyroxine Index 2.07 Thyroxine (T4) 5.6 Triiodothyronine 37.0 (T3) Uptake Test 05/16/19 08:06 05/16/19 11:31 Bedside Glucose 115 118 Medications Medications Current Medications IV Flush (NS 3 ml) 3 ml PER PROTOCOL IV ; Start 05/15/19 at 10:00 Ondansetron HCl (Zofran Inj) 4 mg Q6H PRN IV NAUSEA/VOMITING; Start 05/15/19 at 10:00 Famotidine (Pepcid) 20 mg Q12 PO Last administered on 05/16/19at 08:51; Admin Dose 20 MG; Start 05/15/19 at 21:00 Aspirin (Halfprin) 81 mg DAILY PO Last administered on 05/16/19at 08:51; Admin Dose 81 MG; Start 05/16/19 at 09:00 Atorvastatin Calcium (Lipitor) 10 mg QHS PO Last administered on 05/15/19 21:15; Admin Dose 10 MG; Start 05/15/19 at 21:00 Metformin HCl (Glucophage Xr) 500 mg DAILY PO Last administered on 05/16/19 08:51; Admin Dose 500 MG; Start 05/16/19 at 09:00 Diagnostic Test (Pha) (Accu-Chek) 1 ea AC MEALS AND BEDTIME XX Last administered on 05/16/19at 11:32; Admin Dose 1 EA; Start 05/15/19 at 11:30 Miscellaneous Information 1 ea NOTE XX ; Start 05/15/19 at 10:30 Glucose (Glutose) 15 gm Q15M PRN PO DECREASED GLUCOSE; Start 05/15/19 at 10:30 Glucose (Glutose) 22.5 gm Q15M PRN PO DECREASED GLUCOSE; Start 05/15/19 at 10:30 Dextrose (D50w Syringe) 25 ml Q15M PRN IV DECREASED GLUCOSE; Start 05/15/19 at 10:30 Dextrose (D50w Syringe) 50 ml Q15M PRN IV DECREASED GLUCOSE; Start 05/15/19 at 10:30 Glucagon (Glucagen) 1 mg Q15M PRN IM DECREASED GLUCOSE; Start 05/15/19 at 10:30 Glucose (Glutose) 15 gm Q15M PRN BUCCAL DECREASED GLUCOSE; Start 05/15/19 at 10:30 Losartan Potassium (Cozaar) 25 mg DAILY PO Last administered on 05/16/19 08:51; Admin Dose 25 MG; Start 05/16/19 at 09:00 Apixaban (Eliquis) 5 mg BID PO Last administered on 05/16/19 08:51; Admin Dose 5 MG; Start 05/15/19 at 21:00 Metoprolol Tartrate (Lopressor) 25 mg BID PO Last administered on 05/16/19 08:51; Admin Dose 25 MG; Start 05/15/19 at 21:00 Metoprolol Tartrate (Lopressor) 5 mg Q4H PRN IV HR>110 Hold SBP<100; Start 05/15/19 at 15:30 LUCERO MCPHERSON May 16, 2019 13:18
--- NOTE | 2019-05-17 07:34 | RADRPT ---
Vent Rate: 61 bpm RR Interval: 976 msec WI Interval: 183 msec QRS Duration: 114 msec QT Interval: 432 msec QTC Interval: 437 msec P-R-T [place]: 7 - -6 - 25 degrees Sinus rhythm...normal P axis, V-rate 50- 99 Electronically Signed By: Alfredo Tejada
--- NOTE | 2019-05-17 08:11 | DS ---
Date/Time of Note Date/Time of Note DATE: 05/17/19 TIME: 08:09 Discharge Summary Admission/Discharge Info Admit Date/Time May 15, 2019 at 08:47 Discharge Date/Time May 16, 2019 at 18:14 Discharge Diagnosis Paroxysmal atrial fibrillation Patient Condition: Good Consults Dr. Morse, cardiology Procedures None Hx of Present Illness Ms. Syed is a Peruvian-speaking 59 yo woman with history of NSTEMI, NIDDM who presents with chest martinez and palpitations. She was in her usual state of health until this morning at 3 am when she was woken from sleep with pressure-like chest discomfort. It was worse with standing, better with lying down. She didn't take anything for the discomfort and waited for symptoms to resolve. Around 6 am she developed dyspnea at rest and dizziness, so she presented to the ED. Otherwise she reports compliance with all medications listed. She sees a computerized machine fabric cutter named Dr. Laughlin, last seen 3 months ago. Last time she had this chest pain was after an NSTEMI in 2013 which was treated medically with no cardiac cath. On arrival to the ED she was in A fib tachycardic to 137; hypotensive to 85/67, afebrile, satting 100% on room air. Labs unremarkable including a negative troponin. She got aspirin and a NS bolus and spontaneously converted back to normal sinus. Hospital Course She was admitted to telemetry. Was back in sinus rhythm upon admission and remained in normal sinus over 24 hours observation. Got transthoracic echocardiogram which had grade I diastolic dysfunction, otherwise normal. For paroxysmal A fib she was started by Dr Morse on metoprolol and eliquis. Decreased dose of lisinopril to maintain blood pressure and also discontinued aspirin. Uneventful hospital course. Discharged to followup with either her previous computerized machine fabric cutter or Dr. Morse. Home Meds Active Scripts Losartan Potassium* (Cozaar*) 25 Mg Tablet, 25 MG PO DAILY, #30 TAB Prov:LUCERO HOPE MD 05/16/19 Metoprolol Tartrate* (Lopressor*) 25 Mg Tab, 25 MG PO BID, #60 TAB 3 Refills Prov:LUCREO HOPE MD 05/16/19 Apixaban* (Eliquis*) 5 Mg Tablet, 5 MG PO BID, #60 TAB 3 Refills Prov:LUCERO HOPE MD 05/16/19 Reported Medications Pantoprazole* (Protonix*) 40 Mg Tablet.dr, 40 MG PO DAILY, TAB 05/15/19 Metformin Hcl* (Metformin Hcl* ER) 500 Mg Tab.sr.24h, 500 MG PO DAILY, #30 TAB 05/15/19 Losartan Potassium* (Losartan Potassium*) 50 Mg Tablet, 50 MG PO DAILY, TAB 05/15/19 Atorvastatin Calcium (Atorvastatin Calcium) 10 Mg Tablet, 10 MG PO QHS, #30 TAB 05/15/19 Discontinued Reported Medications Aspirin (Low Dose Aspirin) 81 Mg Tablet.dr, 81 MG PO DAILY, #30 TAB 05/15/19 [Metoprolol] No Conflict Check 03/29/19 [Pantroprazole] No Conflict Check 03/29/19 [Atorvastatin] No Conflict Check 03/29/19 [Aspirin] No Conflict Check 03/29/19 [Metformin] No Conflict Check 03/29/19 Aspirin (Aspirin) 81 Mg Chew, 81 MG PO DAILY, TAB.CHEW 03/16/15 Atorvastatin (Atorvastatin) 10 Mg Tablet, 10 MG PO, TAB 03/16/15 Losartan-Hydrochlorothiazide (Losartan-HCTZ) 50-12.5 Mg Tab, 1 TAB PO DAILY, TAB 03/16/15 Omeprazole* (Omeprazole*) 20 Mg Capsule.dr, 20 MG PO DAILY, CAP 03/16/15 Discontinued Scripts Benzonatate* (Tessalon Perle*) 100 Mg Capsule, 100 MG PO Q8H PRN for COUGH, #18 CAP Prov:PATEL BERNSTEINC 02/17/19 Amoxicillin/Potassium Clav (Amox-Clav 875-125 mg Tablet) 875-125 mg Tab, 1 TAB PO BID for 10 Days, #20 TAB Prov:PATEL BERNSTEINC 02/17/19 Ibuprofen* (Motrin*) 600 Mg Tab, 600 MG PO Q6H PRN for PAIN AND OR ELEVATED TEMP, #30 TAB Prov:ABHINAV VELEZC 07/30/18 Clindamycin Hcl* (Clindamycin Hcl*) 300 Mg Capsule, 300 MG PO TID for 10 Days, CAP Prov:ROSMERY NAVARRETE DO 12/29/15 Hydrocodone Bit-Acetaminophen* ([place]*) 5-325 Mg Tab, 1 TAB PO Q6 PRN for PAIN, #7 TAB Prov:ROSMERY NAVARRETE DO 12/29/15 Hydrocodone Bit-Acetaminophen* ([place]*) 5-325 Mg Tab, 1 TAB PO Q4H PRN for PAIN, #30 TAB Prov:YARI GOODRICH 11/05/15 Follow-up Plan 1. Take all medications as prescribed. 2. Metoprolol is a new medicine which will regulate your heart rate and reduce the risk of arrhythmias. It will lower your blood pressure also. 3. I am changing the dose of your lisinopril from 50mg to 25mg so your blood pressure doesn't drop too low. 4. Apixaban (Eliquis) is a blood thinner which reduces your risk of stroke. While taking this medicine you will bleed and bruise more easily. 5. See your computerized machine fabric cutter in June as scheduled. 1. [place] todos los medicamentos segn lo prescrito. 2. El metoprolol es un nuevo medicamento que regular [place] ritmo cardaco y reducir el riesgo de arritmias. Tambin bajar mon[place] presin arterial. 3. Estoy cambiando la dosis de [place] lisinopril de 50 mg a 25 mg para que mon[place] presin arterial no baje demasiado. 4. Apixaban (Eliquis) es un anticoagulante que reduce el riesgo de accidente cerebrovascular. Mientras jacquie jacob medicamento sangrar y moretear ms fcilmente. 5. Consulte a mon[place] cardilogo en lolita segn lo programado. Primary Care Provider [facility] Time spent on discharge: > 30 minutes Pending Labs Laboratory Tests Test 05/16/19 11:31 05/16/19 17:05 Bedside Glucose 118 mg/dL (70-220) 136 mg/dL (70-220) LUCERO HOPE MD May 17, 2019 08:11
== END 2019-05-16 18:14 | disposition home or self-care (01) ==
LOC: E/R 06:57 → SUATTDRO 08:42 → TEL 08:47
PROVIDERS: ADMIT Internal Medicine; ATTEND Internal Medicine
DX: I48.0 Paroxysmal atrial fibrillation (principal); I10 Essential (primary) hypertension; E78.5 Hyperlipidemia, unspecified; E11.9 Type 2 diabetes mellitus without complications; Z79.82 Long term (current) use of aspirin
CPT/HCPCS: 36415; 71045; 80048; 80053; 80061; 82550; 82553; 82962; 83036; 83735; 83880; 84436; 84443; 84479; 84484; 85025; 85610; 85730; 93005; 93306; 96374; J3475; J7030; Z7500; Z7502; Z7610; G0378

== ENCOUNTER 2019-05-19 22:41 | Emergency (ER) | payer OTHER ==
[~2019-05-19] VITALS: Ht 162.6 cm; Wt 72.2 kg
[~2019-05-19 22:41] MED LIST changes: -AMOX1TAB10 PO; +APIX5TAB PO; -ASPI-831 PO; -ASPIRIN; -ATORVASTATIN; -BENZ-6 PO; -CLIN300C10 PO; -HYDR-3498 PO; -IBUP-1542 PO; -LOSA1TAB22 PO; +LOSA25TA2 PO; +LOSA50TA14 PO; +METF500T3 PO; -METFORMIN; +METO-448 PO; -METOPROLOL; -OMEP20CA16 PO; +PANT40TA3 PO; -[UNRECOGNIZED DRUG - OTHER]
[2019-05-19 22:45] VITALS: Ht 162.6 cm; Wt 72.2 kg
[2019-05-19] MEDS ORDERED: ONDANSETRON 4 MG INJ IV STA (22:59)
[2019-05-19] MEDS ORDERED: HYDROmorphONE 1 MG/ML SYG IV STA (22:59)
[2019-05-20] MEDS ORDERED: HYDROmorphONE 1 MG/ML SYG IV STA ×2 (01:00→01:59)
[2019-05-20] MEDS ORDERED: ONDANSETRON 4 MG INJ IV STA ×2 (01:00→01:59)
[2019-05-20 01:59] VITALS: BP 117/60; PULSE 78; RESP 19
[2019-05-20] MEDS ORDERED: KETOROLAC 30 MG INJ IV STA (02:00)
--- NOTE | 2019-05-20 03:43 | ERD ---
ER Documentation Chief Complaint Chief Complaint RUQ ab & flank pain x 4days HPI This is a 59-year-old female complains of right upper quadrant/right flank pain who is states she is off-and-on sharp pain for the past 4 days he has been more consistent about 2 hours prior to arrival. She had nausea but no vomiting and diarrhea. Denies any chest pain or shortness of breath no blood in her urine no hematuri or dysuria. Pain is nonradiating other than right upper quadrant to the right back ROS All systems reviewed and are negative except as per history of present illness. Medications Home Meds Active Scripts Losartan Potassium* (Cozaar*) 25 Mg Tablet, 25 MG PO DAILY, #30 TAB Prov:LUCERO HOPE MD 05/16/19 Metoprolol Tartrate* (Lopressor*) 25 Mg Tab, 25 MG PO BID, #60 TAB 3 Refills Prov:LUCERO HOPE MD 05/16/19 Apixaban* (Eliquis*) 5 Mg Tablet, 5 MG PO BID, #60 TAB 3 Refills Prov:LUCERO HOPE MD 05/16/19 Reported Medications Pantoprazole* (Protonix*) 40 Mg Tablet.dr, 40 MG PO DAILY, TAB 05/15/19 Metformin Hcl* (Metformin Hcl* ER) 500 Mg Tab.sr.24h, 500 MG PO DAILY, #30 TAB 05/15/19 Losartan Potassium* (Losartan Potassium*) 50 Mg Tablet, 50 MG PO DAILY, TAB 05/15/19 Atorvastatin Calcium (Atorvastatin Calcium) 10 Mg Tablet, 10 MG PO QHS, #30 TAB 05/15/19 Discontinued Reported Medications Aspirin (Low Dose Aspirin) 81 Mg Tablet.dr, 81 MG PO DAILY, #30 TAB 05/15/19 [Metoprolol] No Conflict Check 03/29/19 [Pantroprazole] No Conflict Check 03/29/19 [Atorvastatin] No Conflict Check 03/29/19 [Aspirin] No Conflict Check 03/29/19 [Metformin] No Conflict Check 03/29/19 Aspirin (Aspirin) 81 Mg Chew, 81 MG PO DAILY, TAB.CHEW 03/16/15 Atorvastatin (Atorvastatin) 10 Mg Tablet, 10 MG PO, TAB 03/16/15 Losartan-Hydrochlorothiazide (Losartan-HCTZ) 50-12.5 Mg Tab, 1 TAB PO DAILY, TAB 03/16/15 Omeprazole* (Omeprazole*) 20 Mg Capsule.dr, 20 MG PO DAILY, CAP 03/16/15 Discontinued Scripts Benzonatate* (Tessalon Perle*) 100 Mg Capsule, 100 MG PO Q8H PRN for COUGH, #18 CAP Prov:PATEL BERNSTEIN PA-C 02/17/19 Amoxicillin/Potassium Clav (Amox-Clav 875-125 mg Tablet) 875-125 mg Tab, 1 TAB PO BID for 10 Days, #20 TAB Prov:PATEL BERNSTEIN PA-C 02/17/19 Ibuprofen* (Motrin*) 600 Mg Tab, 600 MG PO Q6H PRN for PAIN AND OR ELEVATED TEMP, #30 TAB Prov:ABHINAV VELEZ PA-C 07/30/18 Clindamycin Hcl* (Clindamycin Hcl*) 300 Mg Capsule, 300 MG PO TID for 10 Days, CAP Prov:ROSALBA,ROSMERY DO 12/29/15 Hydrocodone Bit-Acetaminophen* ([place]*) 5-325 Mg Tab, 1 TAB PO Q6 PRN for PAIN, #7 TAB Prov:ROSALBA,ROSMERY DO 16 Hydrocodone Bit-Acetaminophen* ([place]*) 5-325 Mg Tab, 1 TAB PO Q4H PRN for PAIN, #30 TAB Prov:YARI GOODRICH 11/05/15 Allergies Allergies: Coded Allergies: No Known Allergy (Unverified , 05/15/19) PMhx/Soc History of Surgery: No Anesthesia Reaction: No Hx Neurological Disorder: No Hx Respiratory Disorders: No Hx Cardiac Disorders: Yes (HTN) Hx Psychiatric Problems: No Hx Miscellaneous Medical Probl: No Hx Alcohol Use: No Hx Substance Use: No Hx Tobacco Use: No Smoking Status: Never smoker FmHx Family History: No coronary disease Physical Exam Vitals Vital Signs Date Temp Pulse Resp B/P (MAP) Pulse Ox O2 O2 Flow FiO2 Time Delivery Rate 05/20/19 78 19 117/60 97 Room Air 01:59 (79) 05/20/19 84 18 143/77 100 Room Air 01:26 (99) 05/19/19 100.3 86 20 178/106 98 22:45 (130) Physical Exam Const: Well-developed, well-nourished Head: Atraumatic, normocephalic Eyes: Normal Conjunctiva, PERRLA, EOMI, normal sclera, no nystagmus ENT: Normal External Ears, Nose and Mouth, moist mucus membranes. Neck: Full range of motion. No meningismus, no lymphadenopathy. Resp: Clear to auscultation bilaterally, no wheezing, rhonchi, rales Cardio: Regular rate and rhythm, no murmurs, S1 S2 present Abd: Soft, moderate right upper quadrant tenderness, non distended. Normal bowel sounds, no guarding or rebound, no pulsitile abdominal masses or bruits Skin: No petechiae or rashes, no ecchymosis , no maculopapular rash Back: No midline or flank tenderness Ext: No cyanosis, or edema, FROM x 4, normal inspection, neurovascularly intact x 4 Neur: Awake and alert, STR 5/5 x 4, sensation intact x 4, no focal findings, cerebellum intact Psych: Normal Mood and Affect Result Diagram: 05/19/19 2310 05/19/19 2310 Results 24 hrs Laboratory Tests Test 05/19/19 23:10 White Blood Count 9.1 10^3/ul Red Blood Count 4.54 10^6/ul Hemoglobin 14.8 g/dl Hematocrit 43.4 % Mean Corpuscular Volume 95.6 fl Mean Corpuscular Hemoglobin 32.6 pg Mean Corpuscular Hemoglobin Concent 34.1 g/dl Red Cell Distribution Width 12.5 % Platelet Count 196 10^3/UL Mean Platelet Volume 8.5 fl Immature Granulocytes % 0.300 % Neutrophils % 57.6 % Lymphocytes % 30.4 % Monocytes % 10.7 % Eosinophils % 0.6 % Basophils % 0.4 % Nucleated Red Blood Cells % 0.0 /100WBC Immature Granulocytes # 0.030 10^3/ul Neutrophils # 5.2 10^3/ul Lymphocytes # 2.8 10^3/ul Monocytes # 1.0 10^3/ul Eosinophils # 0.1 10^3/ul Basophils # 0.0 10^3/ul Nucleated Red Blood Cells # 0.0 10^3/ul Sodium Level 145 mmol/L Potassium Level 3.8 mmol/L Chloride Level 102 mmol/L Carbon Dioxide Level 29 mmol/L Anion Gap 14 Blood Urea Nitrogen 14 mg/dl Creatinine 0.69 mg/dl Est Glomerular Filtrat Rate mL/min > 60 mL/min Glucose Level 119 mg/dl Calcium Level 9.8 mg/dl Total Bilirubin 0.6 mg/dl Direct Bilirubin 0.00 mg/dl Indirect Bilirubin 0.6 mg/dl Aspartate Amino Transf (AST/SGOT) 23 IU/L Alanine Aminotransferase (ALT/SGPT) 26 IU/L Alkaline Phosphatase 112 IU/L Total Protein 7.8 g/dl Albumin 4.6 g/dl Globulin 3.20 g/dl Albumin/Globulin Ratio 1.43 Lipase 189 U/L Current Medications Medications Dose Sig/Mica Start Time Status Last (Trade) Ordered Route PRN Stop Time Admin Dose Reason Admin 1 mg ONCE STAT 05/19/19 DC 05/19/19 Hydromorphone IV 22:59 23:13 HCl 05/19/19 23:00 (Dilaudid) Ondansetron 4 mg ONCE STAT 05/19/19 DC 05/19/19 HCl (Zofran IV 22:59 23:13 Inj) 05/19/19 23:00 1 mg ONCE STAT 05/20/19 DC 05/20/19 Hydromorphone IV 01:00 01:06 HCl 05/20/19 01:02 (Dilaudid) Ondansetron 4 mg ONCE STAT 05/20/19 DC 05/20/19 HCl (Zofran IV 01:00 01:06 Inj) 05/20/19 01:02 1 mg ONCE STAT 05/20/19 DC 05/20/19 Hydromorphone IV 01:59 02:08 HCl 05/20/19 02:00 (Dilaudid) Ondansetron 4 mg ONCE STAT 05/20/19 DC 05/20/19 HCl (Zofran IV 01:59 02:08 Inj) 05/20/19 02:00 Ketorolac 30 mg ONCE STAT 05/20/19 DC 05/20/19 Tromethamine IV 02:00 02:08 (Toradol) 05/20/19 02:03 Procedures/[place] [id number] Radiology Main Line: [phone] DIAGNOSTIC IMAGING REPORT Patient: TRACEY DUMONT : 1960 Age: 59 Sex: F MR #: [id number] DOS: 05/19/19 5340 Ordering MD: WINIFRED WEBB DO Location: E/R Room/Bed: PROCEDURE: ULTRASOUND LIMITED ABDOMEN CLINICAL INDICATION: 59-year-old female with right upper quadrant/flank pain for 3 days. TECHNIQUE: Multiple sonographic of the right upper quadrant of the abdomen were obtained. The images were reviewed on a PACS workstation. COMPARISON: Right upper quadrant ultrasound October 29, 2015. FINDINGS: The pancreas is not visualized secondary to overlying bowel gas. The liver displays normal echogenicity. The liver measures 13.2 cm in length. No evidence of intrahepatic biliary ductal dilatation is seen. The portal and hepatic veins are unremarkable. The gallbladder demonstrates no wall thickening, sludge, nor stones. No pericholecystic fluid is seen. The common bile duct measures 3.6 mm and is not dilated. The right kidney displays normal echogenicity. The right kidney measures 10.2 cm in maximal length. No caliectasis or hydronephrosis is seen. No free fluid is seen. IMPRESSION: Unremarkable right upper quadrant abdominal ultrasound. .Dick Kimbrough MD, MD Date Time Electronically viewed and signed by .Dick Kimbrough MD, MD on 05/20/2019 02:37 .M/ CC: WINIFRED WEBB DO [id number] [place] [id number] Radiology Main Line: [phone] DIAGNOSTIC IMAGING REPORT Patient: TRACEY DUMONT : 1960 Age: 59 Sex: F MR #: [id number] DOS: 05/20/19 0153 Ordering MD: WINIFRED WEBB DO Location: E/R Room/Bed: PROCEDURE: CT ABDOMEN/PELVIS WITHOUT CONTRAST CLINICAL INDICATION: 59-year-old female with abdominal/right flank pain. TECHNIQUE: The study was performed utilizing a [employer] 64-slice CT scanner. Direct axial sections were obtained through the abdomen and pelvis without the use of intravenous contrast material. Sagittal and coronal reformations were obtained. One or more of the following dose reduction techniques were utilized: automated exposure control, adjustment of the mA and/or kV according to patient's size, use of iterative reconstruction technique. DICOM images are available. The images were reviewed on a PACS works tation. CTD/vol = 14.17 mGy; Total Exam DLP = 780.41 mGy.cm. COMPARISON: CT abdomen/pelvis November 02, 2015; right upper quadrant ultrasound May 19, 2019. FINDINGS: There is mild bibasilar subsegmental atelectasis and/or scarring. There is no evidence for significant pleural effusion. The liver has a normal size and contour without focal areas of abnormal density. No intrahepatic nor extrahepatic biliary ductal dilatation is seen. The gallbladder demonstrates no wall thickening nor pericholecystic fluid. No biliary stones are evident. The pancreas is without areas of abnormal attenuation. The spleen is identified and has a normal size without abnormal density. The adrenal glands are unremarkable. The kidneys are without abnormal density. No hydroureteronephrosis nor nephroureterolithiasis is evident. The urinary bladder contains urine. There is umbilical hernia with an opening of 5 x 8 mm containing fat. There is retained stool within the colon most prominently within the ascending and transverse colon without evidence for bowel obstruction. Scattered diverticula seen throughout the colon without surrounding inflammatory changes. The appendix is visualized and is without abnormal thickening or surrounding inflammatory reaction. The uterus is anteflexed. There is no significant free fluid. The aortoiliac vessels are minimally calcified but without aneurysmal dilatation. Degenerative changes are seen within the spine. IMPRESSION: 1. No CT evidence for obstructive uropathy or renal calculi. 2. Retained stool most prominently proximally without obstruction. 3. Diffuse colonic diverticulosis. 4. No CT evidence for appendicitis. 5. Degenerative changes within the spine. 6. Bibasilar subsegmental atelectasis and/or scarring. .Dick Kimbrough MD, MD Date Time Electronically viewed and signed by .Dick Kimbrough MD, MD on 05/20/2019 02:44 .M/ CC: WINIFRED WEBB DO [id number] No evidence of stones or kidney stones. We will treat the abundance of proximal colon stool with some MiraLAX. This is likely the cause of her pain or she could have had a tiny stone as passed or not picked up on CT. Departure Diagnosis: Primary Impression: Abdominal pain Abdominal location: right upper quadrant Qualified Codes: R10.11 - Right upper quadrant pain Additional Impression: Constipation Constipation type: unspecified constipation type Qualified Codes: K59.00 - Constipation, unspecified Condition: Stable WINIFRED WEBB DO May 20, 2019 03:43
[2019-05-20] MEDS ORDERED: POLY17PO6 PO (03:44)
[2019-05-20] MEDS ORDERED: TRAM50TA2 PO (03:44)
== END 2019-05-20 04:05 | disposition home or self-care (01) ==
LOC: E/R 22:41
DX: R10.11 Right upper quadrant pain (principal); K59.00 Constipation, unspecified; I10 Essential (primary) hypertension; Z79.84 Long term (current) use of oral hypoglycemic drugs; Z79.01 Long term (current) use of anticoagulants
CPT/HCPCS: 74176; 76705; 80053; 83690; 85025; J1170; J1885; J2405; Z7610; 36415; 96374; 96375; 96376